=== PATIENT | female | born 1995 | race Caucasian/White ===

== ENCOUNTER 2019-05-05 22:17 | Emergency (ER) | payer OTHER, SELFPAY ==
[2019-05-05 22:20] VITALS: RESP 16
[2019-05-05 22:31] VITALS: BP 128/61; PULSE 120; RESP 18; TEMP 37.2; O2SAT 98
--- NOTE | 2019-05-05 22:35 | DI.RAD_ITS ---
EXAM: XR KNEE LT 2V AP,LAT CLINICAL HISTORY: bite laterally, ?FB. TECHNIQUE: 2D digital imaging was performed. COMPARISON: No exams were available for comparison FINDINGS: BONES: No acute fracture is present. No bony destructive lesion is seen. JOINTS: The knee is normally aligned. No joint effusion is seen. SOFT TISSUE: Normal. IMPRESSION: Normal radiographs of the left knee.
--- NOTE | 2019-05-05 22:41 | W.ED.GENAD ---
Discharge Plan Disposition Patient Disposition: HOME Condition: Good Discharge Details Chief Complaint: GenMedical Clinical Impression: Dog bite Primary Care Provider: Valentine Saldivar ED Provider: Mago Marroquin Home Meds and New Rx's Prescriptions: New amoxicillin-pot clavulanate [Augmentin] 875-125 mg tablet 1 tab PO BID Qty: 12 RF: 0 Discharge Instructions Instructions: Amoxicillin/Clavulanate Potassium (By mouth), Animal Bite (ED) Additional Instructions: Encourage hydration. Tylenol and/or ibuprofen as needed for discomfort. Please take Augmentin twice a day as prescribed. You will need close follow-up with your primary care for wound check. Please call them tomorrow to schedule an appointment for or Saturday. If you develop fever/chills, increased pain, redness around the bites, discharge, swelling or other new/worsening symptoms please seek care urgently once again. Referrals: Valentine Saldivar [Primary Care Provider] - Discharge Data Discharge Date/Time-TO BE ENTERED AT DEPARTURE: 05/06/19 00:02 Medical Decision Making Patient is a 24-year-old female presents today with chief complaint of dog bite to the left hand and the left knee. She reports that she works for [employer] using [employer]. 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 Had not been entered the door when the pitbull attacked her first putting the dorsal ulnar side of the left hand and then abutting the lateral aspect of the left.. She does not know when her last tetanus status was. Denies other areas of bite. Is unclear if the dog is up-to-date on immunizations. Endorses some mild tingling into the left pinky finger. Has not taken anything as of yet for her discomfort. Denies . On exam, patient has puncture wound lateral to the fourth MCP joint on the dorsal aspect. No concomitant wound on the palmar side. She has good extension against resistance at the affected digit. Plan to obtain imaging to evaluate for any possible retained foreign body. Will update her tetanus status. Will give Tylenol and ibuprofen for discomfort. We will obtain a UPT. Plan to wash her wounds. Will report dog bite. FINDINGS: Bones/joints: Typical for age. No evidence of acute fracture. Soft tissues: Unremarkable. No evidence of foreign body. No evidence of soft tissue gas. IMPRESSION: No acute findings. FINDINGS: Bones/joints: Typical for age. No evidence of acute fracture. Soft tissues: Unremarkable. No evidence of foreign body. IMPRESSION: No acute findings. Discussed these findings with the patient. UPT negative. Encourage hydration. She will be continued on Augmentin. Advised close follow-up with primary care for reevaluation of the wound center to monitor for signs of infection. May use Tylenol and/or ibuprofen as needed for discomfort. She was given strict return precautions, in particular signs of infection. Wounds are cleansed by nursing staff. All of her questions and concerns were addressed and she is in agreement this plan. director of operations for therapy has been in touch with local officials regarding the dog bite this may be followed appropriately. Advised that the patient will need follow-up on this and to ensure the dog is up-to-date on its rabies vaccines. She was reassured by her boss that the dog should be up-to-date on immunizations. HPI General Mode of arrival: ambulatory. Date/Time Provider Initiated Documentation: 05/05/19 22:35. Limitations to Documentation: no limitations. Information obtained by: patient, family and RN notes reviewed. History of Present Illness 24 year old F presents to the emergency department with the chief complaint of dog bite left knee, left hand, described as severe, with intensity rated at 8. Quality is described as burning and crushing, and is localized to the left, upper extremity and lower extremity. Patient reports no radiation. Patient started experiencing this minute(s) and it has been constant. Immobilization improves symptom(s), Movement worsens symptoms . Patient notes no other symptoms.. Patient did receive the following treatments prior to arrival, none Related Data Home Medications Medication Instructions Recorded Confirmed amoxicillin-pot clavulanate 1 tab PO BID #12 tab 05/05/19 [Augmentin] Previous Rx's Medication Instructions Recorded amoxicillin-pot clavulanate 1 tab PO BID #12 tab 05/05/19 [Augmentin] General Stated Complaint: GenMedical NICOL: 3 Review of Systems Constitutional Constitutional: Reports as per HPI, Denies chills, Denies fever(s), Denies headache(s) and Denies weakness ENT Ears, Nose, Mouth, and Throat: Denies headache(s) Cardiovascular Cardiovascular: Reports as per HPI Respiratory Respiratory: Reports as per HPI and Denies cough Musculoskeletal Musculoskeletal: Reports as per HPI and Denies tingling Integumentary/Breasts Skin/Breast: Reports as per HPI, Denies rash and Denies wounds Neurologic Neurologic: Reports as per HPI, Denies headache(s), Denies tingling, Denies paresthesias and Denies weakness [facility] Social History Smoking/Tobacco Use Status: Never Alcohol Intake: never Drug use: Never Substance use type: does not use Do you feel safe at home: Yes Do you feel safe in your relationship?: Yes Exam Const General: cooperative, healthy appearing, comfortable, no acute distress, well developed and well groomed Nutritional Appearance: average body habitus and well nourished Orientation: alert and awake Resp Effort & Inspection: normal respiratory effort, able to speak in complete sentences and no respiratory distress Cardio Rate: regular rate Rhythm: regular rhythm Skin Trauma: puncture (left hand, left knee) Neuro General: alert and awake Cognition: normal cognition Speech: speech normal Gait: normal gait Motor: muscle tone normal throughout Sensory Exam: no sensory deficits noted Extrem Left upper extremity: full ROM, normal capillary refill, no joint enlargement and hand Details: normal capillary refill, neuromotor exam normal, neurosensory exam normal, tendon exam normal, tenderness Location: of the dorsal hand Location: over the 4th metacarpal, vascular exam Details: radial pulse present, ulnar pulse present and normal capillary refill, normal ROM of fingers and abrasion (puncture); abnormal to inspection (puncture wound as drawn below), no unusual warmth and no swelling; no edema Hand/finger images: 1. area of puncture wound Left lower extremity: full ROM, normal capillary refill, no joint enlargement and knee Details: tenderness (lateral over puncture wounds), normal ROM and knee ligament exam normal; inspection abnormal, no swelling, no ecchymosis, no crepitus, no deformity and no unusual warmth; abnormal to inspection (puncture wounds, consistent with bite) Knee images: 1. 2. 3. area of puncture Psych Appearance: grossly normal and well kempt Mental Status: mental status grossly normal Speech and Movement: speech and movement normal Course Vital Signs Vital signs: Vital Signs Temperature 37.2 C 05/05/19 22:31 Pulse 120 H 05/05/19 22:31 Respiratory Rate 18 05/05/19 22:31 Blood Pressure 128/61 05/05/19 22:31 Pulse Oximetry 98 05/05/19 22:31 Temperature 37.2 C 05/05/19 22:31 Temperature Source Tympanic 05/05/19 22:31 Pulse 120 H 05/05/19 22:31 Respiratory Rate 18 05/05/19 22:31 Blood Pressure 128/61 05/05/19 22:31 Pulse Oximetry 98 05/05/19 22:31 Pain Level 7 05/05/19 22:31
--- NOTE | 2019-05-05 23:15 | DI.RAD_ITS ---
EXAM: XR HAND LT COMPLETE CLINICAL HISTORY: bite, ?FB. TECHNIQUE: 2D digital imaging was performed. COMPARISON: No exams were available for comparison FINDINGS: BONES: No acute fracture is present. No bony destructive lesion is seen. JOINTS: No dislocation present. SOFT TISSUE: Normal. IMPRESSION: Unremarkable radiographs of the left hand.
--- NOTE | 2019-05-05 23:23 | DI.VRAD_ITS ---
PROCEDURE INFORMATION: Exam: XR Left Knee Exam date and time: 05/05/2019 11:14 PM Clinical history: 24 years old, female; Injury or trauma; Injury history: Dog attack, bite lateral above knee; Work related; Initial encounter; Patella or knee; Left; Injury date: 05/05/19; Injury details: Dog bite to leg, lateral above knee TECHNIQUE: Imaging protocol: XR Left knee. Views: 1 or 2 views. COMPARISON: No relevant prior studies available. FINDINGS: Bones/joints: Typical for age. No evidence of acute fracture. Soft tissues: Unremarkable. No evidence of foreign body. No evidence of soft tissue gas. IMPRESSION: No acute findings. Dictated and Authenticated by: Go Tay MD. Ordering:SILVANA Mercedes MD
--- NOTE | 2019-05-05 23:25 | DI.VRAD_ITS ---
PROCEDURE INFORMATION: Exam: XR Left Hand Exam date and time: 05/05/2019 11:14 PM Clinical history: 24 years old, female; Injury or trauma; Injury history: Dog attack, bite to hand, knuckle 4th digit; Work related; Initial encounter; Left; Injury date: 05/05/19; Injury details: Dog bite, ? fb TECHNIQUE: Imaging protocol: XR Left hand. Views: 3 or more views. COMPARISON: No relevant prior studies available. FINDINGS: Bones/joints: Typical for age. No evidence of acute fracture. Soft tissues: Unremarkable. No evidence of foreign body. IMPRESSION: No acute findings. Dictated and Authenticated by: Go Tay MD. Ordering:SILVANA Mercedes MD
[2019-05-05] MEDS: Acetaminophen 325 MG TAB 650 MG PO (23:42)
[2019-05-05] MEDS: Ibuprofen 600 MG TAB PO (23:42)
[2019-05-06 00:02] VITALS: BP 128/61; PULSE 76; RESP 18; O2SAT 98
[2019-05-06] MEDS: Amoxicillin 875/Clav. 125 TAB PO (00:02)
--- NOTE | 2019-05-06 00:34 | NUR.NOTE ---
Nursing Note:cleaned wounds with saline. Instructed pt on s/s of infection and wound care.
--- NOTE | 2019-05-06 09:54 | NUR.NOTE ---
Nursing Note: Animal bite report faxed to [facility] for follow up. Message left for health officer, Lakisha Carrion to call about the animal bite. Kaley Palafox. Fax [phone]
== END 2019-05-06 00:02 | disposition home or self-care (01) ==
PROVIDERS: Emergency Provider Physician Assistant; PCP Family Medicine
DX: S61.452A Open bite of left hand, initial encounter (principal); S81.052A Open bite, left knee, initial encounter; W54.0XXA Bitten by dog, initial encounter
CPT/HCPCS: 81025; 90471; 99284; 73130; 73560

== ENCOUNTER 2019-10-26 10:58 | Emergency (ER) | payer BC, MEDICAID, SELFPAY ==
[2019-10-26 11:03] VITALS: BP 140/82; PULSE 88; TEMP 36.8; O2SAT 100
--- NOTE | 2019-10-26 11:15 | DI.RAD_ITS ---
EXAM: XR FOOT RT COMPLETE CLINICAL HISTORY: fall/twist last night TECHNIQUE: COMPARISON: No exams were available for comparison FINDINGS: Three views were obtained. No fracture is seen. IMPRESSION:
--- NOTE | 2019-10-26 12:12 | ED.GENADUL_ITS ---
Discharge Plan Disposition Patient Disposition: HOME Condition: Stable Discharge Details Chief Complaint: Orthopedic Clinical Impression: Foot sprain Primary Care Provider: Valentine Saldivar ED Provider: Antonio Babb Home Meds and New Rx's Prescriptions: No Action ParaGard T 380A 380 square mm Intrauterine Device 1 device INTRAUTERINE ONCE RF: 0 Discharge Instructions Instructions: Foot Sprain (ED) Additional Instructions: X-ray is negative. Rest, elevate, cool compresses every 2 hours for 20 minutes. [id number] Tylenol and/or Motrin as directed for discomfort. Wear splint and use crutches as needed, advance activity as tolerated. Please watch for new or worsening symptoms and return to the ER for any concerns Medical Decision Making Presents with right foot-ankle pain that occurred last night after a twisting injury. She appears well. Foot-ankle is neuro, vascular, tendon intact. There is more discomfort over the foot as opposed to the ankle. Suspicion is higher for a possible fifth meta tarsal fracture as opposed to a true ankle fracture. Will obtain x-ray to rule out any bony involvement X-ray of the right foot is unremarkable. Discussed findings with patient. She was placed into a stirrup splint, crutches with teaching given. She is comfortable discharge and has no additional questions or concerns Imaging Data Radiologic Study: Attestation: I personally reviewed and interpreted this imaging study as follows: Imaging: X-Ray My impression: Right foot x-ray read by me as negative HPI General Mode of arrival: ambulatory . Date/Time Provider Initiated Documentation: 10/26/19 11:17 . Limitations to Documentation: no limitations . Information obtained by: patient . HPI Narrative: 24-year-old female who reports twisting her right foot and ankle last night. Reports the pain is mild at rest, moderate with weightbearing. Reports minimal swelling. Denies any other injury. Denies numbness, tingling, weakness. Related Data Home Medications Medication Instructions Recorded Confirmed copper [ParaGard T 380A] 1 device INTRAUTERINE ONCE 10/26/19 10/26/19 Allergies Allergy/AdvReac Type Severity Reaction Status Date / Time No Known Allergies Allergy Unverified 10/26/19 11:06 General Stated Complaint: Orthopedic NICOL: 4 Review of Systems Narrative: Denies headache, neck pain, hip pain, knee pain, numbness, tingling, weakness, nausea or vomiting. No skin rash. PFSH Social History Smoking/Tobacco Use Status: Never Alcohol Intake: never Drug use: Never Substance use type: does not use Do you feel safe at home: Yes Do you feel safe in your relationship?: Yes Exam Const General: cooperative, healthy appearing, comfortable and no acute distress Orientation: alert and awake HENMD Head: normal to inspection, normocephalic and atraumatic Mouth: moist mucous membranes Eyes Conjunctivae: conjunctivae normal Neck Neck: normal visual inspection, trachea midline and supple Resp Effort & Inspection: normal respiratory effort and able to speak in complete sentences Cardio Rate: regular rate Rhythm: regular rhythm Skin General skin exam: no rashes or lesions noted Neuro General: patient alert, patient awake, moves all extremities and no focal motor deficits Sensory Exam: no sensory deficits noted Extrem Right lower extremity: ankle Details: normal to inspection and tenderness Loca tion: of the lateral malleolus (Minimal discomfort, no swelling or ecchymosis) and foot (Moderate discomfort to palpation over the fourth and fifth metatarsal) Details: normal capillary refill Psych Appearance: grossly normal Mental Status: mental status grossly normal Course Vital Signs Vital signs: Vital Signs Temperature 36.8 C 10/26/19 11:03 Pulse 88 10/26/19 11:03 Blood Pressure 140/82 10/26/19 11:03 Pulse Oximetry 100 10/26/19 11:03 Temperature 36.8 C 10/26/19 11:03 Pulse 88 10/26/19 11:03 Respiratory Effort Non-Labored 10/26/19 11:05 Blood Pressure 140/82 10/26/19 11:03 Blood Pressure Position Sitting 10/26/19 11:03 Pulse Oximetry 100 10/26/19 11:03 Oxygen Delivery Method Room Air 10/26/19 11:03 Oxygen Flow Rate 0 10/26/19 11:03
== END 2019-10-26 12:25 | disposition home or self-care (01) ==
PROVIDERS: Emergency Provider Physician Assistant; PCP Family Medicine
DX: S93.601A Unspecified sprain of right foot, initial encounter (principal); X50.9XXA Other and unspecified overexertion or strenuous movements or postures, initial encounter
CPT/HCPCS: 29515; 99283; 73630; E0114; L4350

== ENCOUNTER → 2023-12-27 02:12 | Outpatient (CLI) | payer BC, SELFPAY ==
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
== END ==
PROVIDERS: PCP Nurse Practitioner Family; Visit Provider Nurse Practitioner Family
DX: M54.50 Low back pain, unspecified (principal)
CPT/HCPCS: 72110

== ENCOUNTER 2024-01-01 05:04 | Outpatient (CLI) | payer BC, SELFPAY ==
[2024-01-01 12:31] LABS: HCT 39.7 % (36.0-46.0); HGB 13.3 g/dL (11.2-15.7); MCH 30.5 pg (27.0-33.0); MCHC 33.5 % (32.0-36.0); MCV 91 fL (80-95); MPV 11.2 fL (8.0-11.0); Platelet Count 264 10^3/uL (130-400); RBC 4.36 10^6/uL (3.93-5.22); RDW 13.3 % (11.7-14.6); RDW-SD 45.1 fL; WBC 7.61 10^3/uL (4.4-10.8)
[2024-01-01 12:53] LABS: Anion Gap 10.3 mmol/L (3-11); BUN 6 mg/dL (7-18); CO2 26.7 mmol/L (21.0-32.0); CREATININE 0.8 mg/dL (0.55-1.02); Calcium 9.5 mg/dL (8.5-10.1); Chloride 104 mmol/L (98-107); Estimated GFR 104.15 (mL/min/1.73m2); Glucose 90 mg/dL (74-106); Potassium 3.6 mmol/L (3.5-5.1); Sodium 141 mmol/L (136-145); TSH (W/Ref FT4) 1.58 uIU/mL (0.36-3.74)
[2024-01-01 13:39] LABS: Iron 94 ug/dL (50-170); Total Iron Binding Capacity 398 ug/dL (250-450); Transferrin Sat 24 % (15-50)
== END 2024-01-01 05:05 | disposition home or self-care (01) ==
LOC: LBO 05:04
PROVIDERS: PCP Nurse Practitioner Family; Visit Provider Nurse Practitioner Family
DX: F32.A Depression, unspecified; F41.9 Anxiety disorder, unspecified; E61.1 Iron deficiency; M54.50 Low back pain, unspecified; G47.00 Insomnia, unspecified
CPT/HCPCS: 36415; 80048; 85027; 83540; 83550; 84443

== ENCOUNTER 2024-03-14 12:20 | Emergency (ER) | payer BC, SELFPAY ==
[2024-03-14 12:22] VITALS: BP 113/63; PULSE 106; RESP 18; TEMP 36.8; O2SAT 100
--- NOTE | 2024-03-14 12:45 | DI.RAD_ITS ---
Exam(s) XR KNEE RT 3V AP,LAT,KESHA EXAM: XR KNEE RT 3V AP,LAT,KESHA CLINICAL HISTORY: knee pain. TECHNIQUE: 2D digital imaging was performed. COMPARISON: No exams were available for comparison FINDINGS: 3 views No evidence of fracture or joint effusion. No joint space narrowing. No osteochondral defects. No osseous lesions. Bone density is normal. IMPRESSION: No acute osseous findings in the knee. DATA REPOSITORY: RADIATION DOSE DELIVERED:
--- NOTE | 2024-03-14 14:25 | DI.VRAD_ITS ---
PROCEDURE INFORMATION: Exam: XR Right Knee Exam date and time: 03/14/2024 1:21 PM Age: 29 years old Clinical indication: Other: Right knee pain TECHNIQUE: Imaging protocol: Radiologic exam of the right knee. Views: 3 views. COMPARISON: CR XR FOOT RT COMPLETE 10/26/2019 11:54 AM FINDINGS: Bones/joints: No fracture or other osseous abnormality. Joint spaces are well preserved. No significant effusion. No varus or valgus angulation. Soft tissues: Normal. IMPRESSION: Normal knee. Dictated and Authenticated by: Marvin Castillo MD. Ordering:[facility] Ruth Solano MD
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
[2024-03-14] MEDS: Acetaminophen 325 MG TAB 650 MG PO (14:36)
[2024-03-14] MEDS: Ibuprofen 400 MG TAB PO (14:36)
== END 2024-03-14 15:09 | disposition home or self-care (01) ==
PROVIDERS: Emergency Provider Emergency Medicine; PCP Nurse Practitioner Family
DX: M25.561 Pain in right knee (principal); Y93.55 Activity, bike riding; X50.0XXA Overexertion from strenuous movement or load, initial encounter
CPT/HCPCS: 29505; 73562; 99283

== ENCOUNTER 2024-12-31 19:00 | Outpatient (REF) | payer BC, SELFPAY ==
--- NOTE | 2024-12-31 15:50 | PAPFT_PTH ---
PATIENT: Karla Hassan LOC: [facility] U#:[id number] AGE/SX: 29/F ROOM: RE12/31/[address]: Shasha Garrett NP : 1995 BED: DIS: 12/31/2024 SPEC #: [id number] RECD: 01/01/25 12:57 STATUS: NAV REIsaiah #: [id number] LARRY: 12/31/24 15:[address]: Shasha Garrett DEPT: [facility] Cytology RECD BY: Naina Meneses Tissues: 1 - CX/ENDOCX FOR PAP SMEARS Procedures: PAP THIN PREP/UVM Screening HPV DNA PROBE Comments: [id number] (HPV 16 & 18/45) (CHLAMYDIA/GC)
[2025-01-04 12:00] LABS: Chlamydia Result Negative (Negative); GC Result Negative (Negative)
== END 2024-12-31 19:01 | disposition home or self-care (01) ==
LOC: LBN 19:00
PROVIDERS: PCP Nurse Practitioner Family; Visit Provider Nurse Practitioner Family
DX: Z12.4 Encounter for screening for malignant neoplasm of cervix (principal); B37.89 Other sites of candidiasis; Z11.51 Encounter for screening for human papillomavirus (HPV); Z11.3 Encounter for screening for infections with a predominantly sexual mode of transmission
CPT/HCPCS: 87491; 87591; 88142; 87624